=== PATIENT | male | born 2000 | race Caucasian/White ===

== ENCOUNTER 2024-07-07 17:45 | Emergency (ER) | payer BC, OTHER ==
[~2024-07-07] VITALS: Ht 182.9 cm; Wt 78.4 kg
[2024-07-07 18:40] LABS: BASO % 0.5 % (0.0-1.0); EOS # 0.1 10^3/uL (0.0-0.5); EOS % 1.2 % (0.0-3.0); HEMATOCRIT 46.7 % (42.0-52.0); HEMOGLOBIN 16.1 g/dl (13.5-17.5); LYMPH # 1.5 10^3/uL (1.5-5.0); LYMPH % 23.5 % (24.0-44.0); MEAN CORPUSCULAR HEMOGLOBIN 28.9 pg (27.0-33.0); MEAN CORPUSCULAR HGB CONC 34.5 g/dl (32.0-36.5); MEAN CORPUSCULAR VOLUME 83.7 fl (80.0-96.0); MONO # 0.5 10^3/uL (0.0-0.8); MONO % 8.3 % (2.0-8.0); NEUTROPHILS # 4.3 10^3/uL (1.5-8.5); NEUTROPHILS % 66.3 % (36.0-66.0); PLATELET COUNT, AUTOMATED 305 10^3/uL (150-450); RED BLOOD COUNT 5.58 10^6/uL (4.30-6.10); WHITE BLOOD COUNT 6.5 10^3/uL (4.0-10.0)
[2024-07-07 19:04] LABS: CK-MB VALUE MASS < 1.0 NG/ML (<3.6)
[2024-07-07 19:06] LABS: ALBUMIN 4.4 G/DL (3.2-5.2); ALKALINE PHOSPHATASE 93 U/L (40-129); ALT/SGPT 20 U/L (7.0-40); AST/SGOT 21 U/L (<34); BILIRUBIN,DIRECT 0.2 MG/DL (<0.4); BILIRUBIN,TOTAL 0.7 MG/DL (0.3-1.2); BLOOD UREA NITROGEN 16 MG/DL (9-23); CARBON DIOXIDE LEVEL 24 MMOL/L (20-31); CHLORIDE LEVEL 109 MMOL/L (98-107); CREATININE FOR GFR 0.95 MG/DL (0.70-1.30); GLOMERULAR FILTRATION RATE > 90.0 (>60); GLUCOSE, FASTING 94 MG/DL (60-100); POTASSIUM SERUM 4.2 MMOL/L (3.5-5.1); SODIUM LEVEL 143 MMOL/L (136-145); TOTAL PROTEIN 7.9 G/DL (5.7-8.2)
[2024-07-07 19:07] LABS: THYROID STIMULATING HORMONE 0.988 uIU/ML (0.55-4.78)
[2024-07-07 19:14] LABS: CPK CREATINE PHOSPHOKINASE 233 U/L (46-171); MB/CK RELATIVE INDEX 0.42 (< OR =4)
[2024-07-07] MEDS: MECLIZINE 25 MG TABLET PO ONE (20:29)
[2024-07-07] MEDS: NS (Normal Saline) 0.9% 1,000 ML IV ONE ×2 (20:30→21:50)
[2024-07-07 20:52] LABS: SOFIA COVID ANTIGEN NEGATIVE (NEGATIVE)
[2024-07-07] MEDS: AUGMENTIN 875 MG TAB PO ONE (21:49)
[2024-07-07 21:50] VITALS: TEMP 97.5
[2024-07-07 22:30] VITALS: BP 132/71; O2SAT 98
[2024-07-07] MEDS ORDERED: AMOX875T2 PO (22:50)
== END 2024-07-07 22:56 | disposition home or self-care (01) ==
LOC: M ED 17:45
DX: R42 Dizziness and giddiness (principal); H66.92 Otitis media, unspecified, left ear; R00.1 Bradycardia, unspecified; Z91.013 Allergy to seafood; Z79.2 Long term (current) use of antibiotics